=== PATIENT | male | born 1960 | race Caucasian/White ===

== ENCOUNTER → 2019-04-12 | Outpatient (CLI) | payer OTHER ==
[~2019-04-12] MED LIST: ADVAIR 500/501 EA INH; AMLODIPINE BESYL5 MG PO; FLOMAX0.4 MG PO; LOSARTAN POTASS25 MG PO; PROPRANOLOL HCL60 M1; SINGULAIR4 M1 PO; ULTRACET TABLE1 EACH PO; XOPENEX HFA15 GM INH
--- NOTE | 2019-04-12 11:13 | Diagnostic Imaging Report ---
Exam: KUB - 2 views Clinical History: Renal calculi, left abdominal pain Comparison: None Findings: No radiographically apparent renal calculi. Right internal nephroureteral stent in place. Nonobstructive bowel gas pattern. No free air. Status post cholecystectomy. The osseous structures appear unremarkable. Impression: No radiographically apparent renal calculi. Right internal nephroureteral stent in place. Signed by: Deborah Morales MD on 04/12/2019 11:09 AM
== END ==
LOC: RAD 10:10
PROVIDERS: ATTEND Urology
DX: N20.0 Calculus of kidney (principal); R10.9 Unspecified abdominal pain
CPT/HCPCS: 74018

== ENCOUNTER → 2019-04-18 | Day surgery (SDC) | payer OTHER ==
[~2019-04-18] MED LIST changes: +ACETAMINOPHEN/CODEINE 300MG - 30MG TAB ONE; +DEXAMETHASONE SOD PHOS INJ 4 MG/ML VIAL ONE; +FENTANYL CITRATE/PF 100MCG/2 ML INJ ONE; +IOPAMIDOL 610MG/1ML 300 MG/ML VIAL IV ONE; +LEVOFLOXACIN 500MG/D5W 100ML 100 ML IV ONE; +LIDOCAINE HCL 2% LOCAL INJ 5 ML SDV VIAL INJ ONE; +MIDAZOLAM HCL 2 MG/2 ML VIAL ONE; +ONDANSETRON HCL INJ 2MG/ML 2ML 2 MG/ML VIAL ONE; +PROPOFOL IV EMULSION 10 MG/ML 20 ML VIAL ONE; +SEVOFLURANE INHAL SOLN 250 ML PEN BTL ONE
--- OUTSIDE RECORDS SUMMARY | 2019-04-18 07:04 | XMS REPORT ---
Author Author [facility] Address Unknown Phone Unavailable Care Team Providers Care Patient Registration Manager Name Role Phone FLIP RIZVI Unavailable Unavailable Problems This patient has no known problems. Allergies, Adverse Reactions, Alerts This patient has no known allergies or adverse reactions. Medications This patient has no known medications. Results Test Description Test Time Test Comments Text Results Atomic Results Result Comments ABDOMEN-1VIEW (KUB) 2019-04-12 11:08:00 [facility] [address] [place] [address] Patient Name: MIRNA MENDIOLA MR #: [id number] : 1960 Age/Sex: 58/M Req #: [id number] Adm Physician: Ordered by: FLIP RIZVI MD Report #: [id number] Location: [facility] Room/Bed: Procedure: [id number] DX/ABDOMEN-1VIEW (KU) Exam Date: 04/12/19 Exam Time: 1030 REPORT STATUS: Signed Exam: KUB - 2 views Clinical History: Renal calcu li, left abdominal pain Comparison: None Findings: No radiographically apparent renal calculi. Right internal nephroureteral stent in place. Nonobstructive bowel gas pattern. No free air. Status post cholecystectomy. The osseous structures appear unremarkable. Impression: No radiographically apparent renal calculi. Right internal nephroureteral stent in place. Signed by: Rashi Douglas MD on 04/12/2019 11:09 AM Dictated By: RASHI DOUGLAS MD 08 Transcribed By: NOHEMY on 04/12/191108 COPY TO: FLIP RIZVI MD
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
[2019-04-18 11:25] VITALS: BP 145/89
--- NOTE | 2019-04-18 17:03 | Operative Report ---
DATE OF PROCEDURE: 04/18/2019 SURGEON: Alison Cruz MD SERVICE: Urology. PREOPERATIVE DIAGNOSES: Right hydronephrosis, presence of right double-J stent. POSTOPERATIVE DIAGNOSES: Right UPJ obstruction and small bladder stones. OPERATION PERFORMED: 1. Cystoscopy and left retrograde pyelograms under fluoroscopic control. This is done for microscopic hematuria, not related to the contralateral side. 2. Removal of double-J stent from the right side. 3. Right retrograde pyelograms under fluoroscopic control. 4. Right ureteroscopy. 5. Placement of double-J stent, seven-Emirati and 26 cm long to the right side. 6. Removal of small bladder calculi. 7. Interpretation of x-ray, radiologist not present. 8. Supervision of fluoroscopy, radiologist not present. TREATMENT PLANT MECHANIC: None. ANESTHESIA: General. CLINICAL INDICATION NOTE: This is a 58-year-old patient, who came to see me following the placement of double-J stent at an outside facility. The patient had hydronephrosis on the right side. He was brought for assessment of both sides. The procedure was discussed with the patient. He is aware that he may require a J stent after the procedure. DESCRIPTION OF PROCEDURE AND FINDINGS: After appropriate level of anesthesia was achieved, the patient was placed in the lithotomy position, prepped and draped in a sterile fashion. Urethra inspected and was unremarkable. Bladder outlet is patent. Bladder mucosa is normal. A few small calculi are present and removed. The double-J stent is protruding from the right ureter orifice. Left is normal. Open-end catheter was inserted to the left side and retrograde pyelogram demonstrated unremarkable urinary system and ureter on the left side with prompt drainage. Following this, the double-J was removed from the right side. Open-end catheter was inserted. Retrograde pyelogram demonstrating that there is a short narrow area at the UPJ and prominent pelvis. Following this, the guidewire was kept in place and a flexible ureteroscopy was done. UPJ obstruction is noticed, documented with a picture. Renal pelvis is unremarkable, otherwise except for its size. No stones are present. Wire was kept in place and a 7-Emirati 26 cm long double-J stent was properly positioned on the right side. Proper position was verified by x-ray and endoscopy. The scope was removed and the patient was transferred in satisfactory condition to the recovery room. He will be followed as outpatient for further recommendation about treating the right UPJ. MD LAKE Arreola/ANA PAULA /[id number]
== END | disposition home or self-care (01) ==
LOC: OR 07:01
PROVIDERS: ATTEND Urology
DX: N13.5 Crossing vessel and stricture of ureter without hydronephrosis (principal); N21.0 Calculus in bladder; N13.30 Unspecified hydronephrosis; Z46.6 Encounter for fitting and adjustment of urinary device; J45.998 Other asthma; I10 Essential (primary) hypertension; E66.9 Obesity, unspecified; Z88.0 Allergy status to penicillin
CPT/HCPCS: 52332; 52351; 74420; 93005; C1758; C2617; J1100; J1956; J2001; J2250; J2405; J2704; J3010; Q9967

== ENCOUNTER → 2019-07-04 | Day surgery (SDC) | payer OTHER ==
[~2019-07-04] MED LIST changes: -ACETAMINOPHEN/CODEINE 300MG - 30MG TAB ONE; +B&O 60MG R/S 60 MG SUPP PR ONE; -DEXAMETHASONE SOD PHOS INJ 4 MG/ML VIAL ONE; +HYDROMORPHONE 2MG/ML 2 MG/ML ML ONE; +IOPAMIDOL 300MG/ML 50ML INFUS..BTL IV ONE; -IOPAMIDOL 610MG/1ML 300 MG/ML VIAL IV ONE; +KETOROLAC TROMETHAMINE 30 MG/ML VIAL ONE; -LEVOFLOXACIN 500MG/D5W 100ML 100 ML IV ONE; +MORPHINE SULFATE INJ 4 MG/ML INJ 1ML ONE; +TOBRAMYCIN 40 MG/ML 2ML VIAL ONE
[2019-07-04 10:45] VITALS: BP 125/89
--- NOTE | 2019-07-04 23:45 | Operative Report ---
DATE OF PROCEDURE: 07/04/2019 SURGEON: Alison Cruz MD SERVICE: Urology. PREOPERATIVE DIAGNOSES: 1. Right ureteropelvic junction obstruction. 2. Right hydronephrosis. 3. Elevated PSA. 4. Benign prostatic hypertrophy. 5. Microhematuria. POSTOPERATIVE DIAGNOSES: 1. Right ureteropelvic junction obstruction. 2. Right hydronephrosis. 3. Elevated PSA. 4. Benign prostatic hypertrophy. 5. Microhematuria. OPERATIONS PERFORMED: 1. Cystoscopy and left retrograde pyelograms under fluoroscopic control. 2. Removal of double-J stent from the right side. 3. Right retrograde pyelograms under fluoroscopic control. 4. Right ureteroscopy. 5. Placement of double-J stent, 7-Cuban x 26 cm long to the right side. 6. Interpretation of x-ray, radiologist not present. 7. Supervision of fluoroscopy, radiologist not present. 8. Ultrasound of the prostate. 9. Ultrasound-guided biopsy of the prostate, 12 cores, 6 from each side. TACKING STITCH REMOVER: None. ANESTHESIA: General. CLINICAL INDICATIONS: This is a 59-year-old patient, who is known to have right UPJ obstruction, has a stent in place. The patient had an elevated PSA and was brought for reassessment of the right and left side as well as prostate biopsy. Procedure was discussed with the patient. Potential benefits and complications discussed, explained and accepted. DESCRIPTION OF PROCEDURE AND FINDINGS: After appropriate level of anesthesia was achieved, the patient was placed in lithotomy position, prepped and draped in a sterile fashion. Urethra inspected and is unremarkable. Bladder is obstructed by large prostate. Bladder is trabeculated. Double-J stent is protruding from the right ureteral orifice. The left UO is unremarkable. Open-ended catheter was inserted. Retrograde pyelogram is demonstrating a normal collecting system on the left side. Following this, a right double-J was removed. Open-ended catheter inserted and retrograde pyelogram demonstrating narrow junction of the UPJ on the right side and dilation of the pelvis. The wire was kept in place. A flexible ureteroscopy was done demonstrating the blockage. There are no stones or tumors were identified. The wire was kept in place and a double-J stent 7-Cuban x 26 cm long was properly positioned on the right side. An enema with diluted Betadine was then done to try to sterilize as an additional measure before biopsy of the prostate. Following this, ultrasound probe was inserted and the prostate was examined. No definitive lesions were identified. Size was documented. Six cores of prostatic tissue obtained from each side, 2 at the apex, 2 at the middle, and 2 at the base and they were sent in 6 separate containers to the pathologist. B and O suppository was placed and the patient was transferred in satisfactory condition to recovery room. Postop care was given and followup given. MD LAKE Arreola/MODL /[id number]
== END | disposition home or self-care (01) ==
LOC: OR 06:19
PROVIDERS: ATTEND Urology
DX: N13.5 Crossing vessel and stricture of ureter without hydronephrosis (principal); N13.30 Unspecified hydronephrosis; R97.20 Elevated prostate specific antigen [PSA]; N32.89 Other specified disorders of bladder; N41.0 Acute prostatitis; N41.1 Chronic prostatitis; I10 Essential (primary) hypertension; J45.909 Unspecified asthma, uncomplicated; Z88.0 Allergy status to penicillin
CPT/HCPCS: 52332; 52351; 55700; 74420; 76872; 76998; 88305; C1758; C2617; J1170; J1885; J2001; J2250; J2270; J2405; J2704; J3010; J3260; Q9967

== ENCOUNTER → 2019-10-07 | Day surgery (SDC) | payer OTHER ==
[~2019-10-07] MED LIST changes: +ACETAMINOPHEN/CODEINE 300MG - 30MG TAB ONE; -B&O 60MG R/S 60 MG SUPP PR ONE; +DEXAMETHASONE SOD PHOS INJ 4 MG/ML VIAL ONE; -HYDROMORPHONE 2MG/ML 2 MG/ML ML ONE; +LEVOFLOXACIN 250MG/D5W 50ML 50 ML ONE; +LEVOFLOXACIN 500MG/D5W 100ML 100 ML IV ONE; -MORPHINE SULFATE INJ 4 MG/ML INJ 1ML ONE; -TOBRAMYCIN 40 MG/ML 2ML VIAL ONE
[2019-10-07 11:50] VITALS: BP 139/88
--- NOTE | 2019-10-07 19:04 | Operative Report ---
DATE OF PROCEDURE: 10/07/2019 SURGEON: Alison Cruz MD SERVICE: Urology. PREOPERATIVE DIAGNOSES: 1. Mild right hydronephrosis. 2. Question of ureteropelvic junction obstruction. 3. Presence of double-J stent in the right side. 4. Microhematuria. 5. Benign prostatic hyperplasia. POSTOPERATIVE DIAGNOSES: 1. Mild right hydronephrosis. 2. Question of ureteropelvic junction obstruction. 3. Presence of double-J stent in the right side. 4. Microhematuria. 5. Benign prostatic hyperplasia. OPERATIONS PERFORMED: 1. Cystoscopy and left retrograde pyelogram under fluoroscopic control. This is done with different instruments, not related to the other side. 2. Removal of double-J stent from the right side. 3. Right retrograde pyelogram under fluoroscopic control. 4. Right ureteroscopy. 5. Interpretation of x-ray, radiologist not present. 6. Supervision of fluoroscopy, radiologist not present. HAT FORMER: None. ANESTHESIA: General. CLINICAL INDICATION NOTE: This is a 59-year-old patient with a question of UPJ on the right side with mild hydro. The patient was brought for reassessment. The patient was advised that pending the finding and consider additional steps. DESCRIPTION OF PROCEDURE AND FINDINGS: After appropriate level of anesthesia was achieved, he was placed in lithotomy position, prepped and draped in a sterile fashion. Urethra inspected and was unremarkable. Bladder was obstructed by small prostate. Bladder was minimally trabeculated. Double-J stent was protruding to the right ureteral orifice. Left UO was unremarkable. Open-end catheter was inserted to the left side. Retrograde pyelogram demonstrated normal upper tract and ureter. Following this, the double-J in the right side was removed, open-end catheter inserted and retrograde pyelogram demonstrating some dilation of the renal pelvis of the right side. The ureter was unremarkable with a question whether there was any obstruction at the UPJ. Therefore, a wire was kept in place and a flexible ureteroscopy was done. The UPJ was probably a little bit narrow, however, the ureteropelvic junction was little bit narrow. Renal pelvis was unremarkable. No tumor or foreign body found. The scope was then removed. The bladder was irrigated. The patient tolerated the procedure well, was transferred in satisfactory condition to recovery room. He has elected not to place a double-J stent at the present time. We will follow the system on the right side with scans and if would be a significant UPJ obstruction, we will consider surgical repair with the options that were discussed previously with the patient. MD LAKE Arreola/ANA PAULA /[id number]
== END | disposition home or self-care (01) ==
LOC: OR 07:04
PROVIDERS: ATTEND Urology
DX: N13.30 Unspecified hydronephrosis (principal); Z46.6 Encounter for fitting and adjustment of urinary device; N32.89 Other specified disorders of bladder; N40.1 Benign prostatic hyperplasia with lower urinary tract symptoms; N13.8 Other obstructive and reflux uropathy; J45.909 Unspecified asthma, uncomplicated; I10 Essential (primary) hypertension; E66.9 Obesity, unspecified; Z88.0 Allergy status to penicillin
CPT/HCPCS: 74420; 93005; C1758; C1769; J1100; J1885; J1956; J2001; J2250; J2405; J3010

== ENCOUNTER 2020-08-06 03:44 | Emergency (ER) | payer OTHER ==
[~2020-08-06] VITALS: Ht 182.9 cm; Wt 127.0 kg
[~2020-08-06 03:44] MED LIST changes: -ACETAMINOPHEN/CODEINE 300MG - 30MG TAB ONE; -DEXAMETHASONE SOD PHOS INJ 4 MG/ML VIAL ONE; -FENTANYL CITRATE/PF 100MCG/2 ML INJ ONE; -IOPAMIDOL 300MG/ML 50ML INFUS..BTL IV ONE; -KETOROLAC TROMETHAMINE 30 MG/ML VIAL ONE; -LEVOFLOXACIN 250MG/D5W 50ML 50 ML ONE; -LEVOFLOXACIN 500MG/D5W 100ML 100 ML IV ONE; -LIDOCAINE HCL 2% LOCAL INJ 5 ML SDV VIAL INJ ONE; -MIDAZOLAM HCL 2 MG/2 ML VIAL ONE; -ONDANSETRON HCL INJ 2MG/ML 2ML 2 MG/ML VIAL ONE; -PROPOFOL IV EMULSION 10 MG/ML 20 ML VIAL ONE; -SEVOFLURANE INHAL SOLN 250 ML PEN BTL ONE
[2020-08-06] MEDS ORDERED: ACETAMINOPHEN 325 MG TAB PO ONE (04:00)
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
--- NOTE | 2020-08-06 04:31 | Emergency Department Note ---
History of Present Illnes History of Present Illness Chief Complaint: COVID PUI History of Present Illness This is a 60 year old male PRESENTS TO ED COVID + (TESTED AT [facility] 07/31/20) WITH FEVER, HEADACHE, CHILLS; PT HAS NOT TAKEN TYLENOL FOR THE PAST 14 HOURS AND STATES, "I'M TIRED OF HAVING A FEVER." RESP ARE EVEN AND UNLABORED, SHALLOW, O2 SAT RA 95-96%; ORAL TEMP IN TRIAGE 102.8 F . Historian: Patient Arrival Mode: Car Onset (how long ago): day(s) (6) Location: ALL OVER Quality: FEVER, CHILLS, COUGH, BODY ACHES, HEADACHES Radiation: Reports non-radiation Severity: moderate Onset quality: gradual Duration (how long): day(s) (6) Timing of current episode: constant Progression: unchanged Chronicity: new Context: Reports recent illness (COVID 19 POSITIVE) Relieving factors: none Exacerbating factors: none Associated symptoms: Reports cough, Reports fever/chills, Reports headaches, Reports malaise Treatments prior to arrival: none Past Medical/Family History Physician Review I have reviewed the patient's past medical and family history. Any updates have been documented here. Past Medical History Recent Fever: Yes Clinical Suspicion of Infectio: Yes New/Unexplained Change in Ment: No Past Medical History: Hypertension, Asthma Other Medical History: PNEUMONIA bph seasonal allergies Past Surgical History: Hernia Repair Other Surgery: kidney stent hernia repair SLAP repair l shoulder Social History Smoking Cessation: Never Smoker Alcohol Use: Occasional Any Illegal Drug Use: No Physically hurt or threatened: No Other Last Tetanus: unknown Any Pre-Existing Lines (PICC,: No Review of Systems Review of Systems Constitutional: Reports as per HPI EENTM: Reports no symptoms Cardiovascular: Reports no symptoms Respiratory: Reports as per HPI Gastrointestinal: Reports no symptoms Genitourinary: Reports no symptoms Musculoskeletal: Reports no symptoms Integumentary: Reports no symptoms Neurological: Reports as per HPI Psychological: Reports no symptoms Endocrine: Reports no symptoms Hematological/Lymphatic: Reports no symptoms Physical Exam Related Data Allergies: Coded Allergies: amoxicillin (Verified Allergy, Unknown, 10/03/16) Triage Vital Signs Vital Signs Date Time Temp Pulse Resp B/P (MAP) Pulse Ox O2 Delivery O2 Flow Rate FiO2 08/06/20 03:45 102.8 86 20 127/82 96 Room Air Vital signs reviewed: Yes Physical Exam CONSTITUTIONAL Constitutional: Present well-developed, Present well-nourished; Absent distressed HENT HENT: Present normocephalic, Present atraumatic, Present oropharynx clear/moist, Present nose normal HENT L/R: Present left ext ear normal, Present right ext ear normal EYES Eyes: Reports PERRL, Reports conjunctivae normal NECK Neck: Present ROM normal PULMONARY Pulmonary: Present effort normal, Present rhonchi (AT BASES BILATERAL); Absent respiratory distress CARDIOVASCULAR Cardiovascular: Present regular rhythm, Present heart sounds normal, Present capillary refill normal, Present normal rate GASTROINTESTINAL Abdominal: Present soft, Present nontender, Present bowel sounds normal GENITOURINARY Genitourinary: Present exam deferred SKIN Skin: Present warm, Present dry MUSCULOSKELETAL Musculoskeletal: Present ROM normal NEUROLOGICAL Neurological: Present alert, Present oriented x 3, Present no gross motor or sensory deficits PSYCHOLOGICAL Psychological: Present mood/affect normal, Present judgement normal Results Imaging Imaging results reviewed: Yes Assessment & Plan Medical Decision Making MDM PT WITH COVID 19 PRESENTS WITH C/O TIRED OF RUNNING FEVER AND FEELING BAD CXR ORDERED TO EVAL FOR VIRAL PNEUMONIA TYLENOL 975 MG PO ORDERED Reassessment Reassessment time: 05:29 Reassessment pt afebrile at this time oxygen saturation 96% on room air no respiratory distress Assessment & Plan Final Impression: (1) Fever (2) COVID-19 (3) Viral pneumonia Depart Disposition: HOME, SELF-CARE Last Vital Signs Date Time Temp Pulse Resp B/P (MAP) Pulse Ox O2 Delivery O2 Flow Rate FiO2 08/06/20 03:45 102.8 86 20 127/82 96 Room Air Home Meds Reported Medications Amlodipine Besylate (AMLODIPINE BESYLATE) 5 Mg Tablet, 5 MG PO DAILY, #30 TAB 04/18/19 Tamsulosin Hcl* (FLOMAX*) 0.4 Mg Cap, 0.4 MG PO DAILY, #30 CAP 04/17/19 Levalbuterol Tartrate (XOPENEX HFA) 15 Gm Hfa.aer.ad, 1 INH INH PRN for SHORTNESS OF BREATH 10/03/16 Salmeterol Xinaf/Fluticasone* (ADVAIR 500/50*) 1 Ea Aerp, 1 PUFF INH DAILY, INH 01/06/16 Montelukast Sodium (SINGULAIR) 4 Mg Gran.pack, 10 MG PO DAILY 08/13/13 Medications in the ED Acetaminophen 975 mg ONCE ONCE PO Last administered on 08/06/20at 03:56; Admin Dose 975 MG; Start 08/06/20 at 04:00; Stop 08/06/20 at 04:01; Status UNV DARREL MELTON MD Aug 06, 2020 04:31
--- NOTE | 2020-08-06 05:36 | Diagnostic Imaging Report ---
EXAMINATION: CHEST SINGLE (PORTABLE) INDICATION: ^Y ^FEVER, COUGH, COVID + ^[id number] ^0410 ^Y COMPARISON: None FINDINGS: TUBES and LINES: None. LUNGS: Normal lung volumes. Multifocal patchy haziness. Peripheral consolidative opacity in the right upper lobe. PLEURA: No pleural effusion or pneumothorax. HEART AND MEDIASTINUM: The cardiomediastinal silhouette is unremarkable. BONES AND SOFT TISSUES: No acute osseous lesion. Soft tissues are unremarkable. UPPER ABDOMEN: No free air under the diaphragm. IMPRESSION: Multifocal patchy airspace opacities likely represent pneumonia. A peripheral consolidative opacity in the right upper lobe is likely pneumonia, recommend follow-up chest x-ray in 6-8 weeks. Signed by: Uriel Dover DO on 08/06/2020 5:33 AM
[2020-08-06 05:45] VITALS: BP 110/85
== END 2020-08-06 05:40 | disposition home or self-care (01) ==
LOC: ER 03:58
DX: U07.1 COVID-19 (principal); R50.9 Fever, unspecified; J12.9 Viral pneumonia, unspecified; R05 Cough; I10 Essential (primary) hypertension
CPT/HCPCS: 71045; 99283

== ENCOUNTER 2021-06-04 13:02 | Outpatient (RCR) | payer OTHER | END 2021-07-04 | LOC: PT 13:02 | PROVIDERS: ATTEND Specialist | DX: M75.41 Impingement syndrome of right shoulder (principal); M54.12 Radiculopathy, cervical region; M79.641 Pain in right hand; M25.641 Stiffness of right hand, not elsewhere classified ==